=== PATIENT | female | born 1940 | race Caucasian/White ===

== ENCOUNTER 2023-11-30 11:36 | Inpatient (IN) | payer OTHER, SELFPAY ==
[2023-11-28 18:31] LABS: % Basophils 0.2 % (0-2); % Immature Granulocytes 0.6 % (0-0.5); % Lymphocytes 5.6 % (20.5-51.1); % Monocytes 8.9 % (1.7-9.3); % Neutrophils 84.7 % (42.2-75.2); Absolute Immature Granulocytes 0.1 10^3/uL (0-0.05); Absolute Monocytes 1.6 10^3/uL (0.1-0.6); Absolute Neutrophils 15.1 10^3/uL (1.4-6.5); Hematocrit 33.4 % (37.0-47.0); Hemoglobin 11.5 g/dL (12.0-16.0); Mean Corp Hgb Conc. 34.4 g/dL (33.0-37.0); Mean Corpuscular Hgb 28.3 pg (27.0-31.0); Mean Corpuscular Volume 82.1 fL (81.0-99.0); Mean Platelet Volume 10.5 fL (7.4-10.4); Nucleated Red Blood Cells % 0 %; Platelet Count 269 10^3/uL (130-400); Red Blood Cell Count 4.07 10^6/uL (4.20-5.40); Red Cell Dist. Width 13.4 % (11.5-14.5); White Blood Cell Count 17.8 10^3/uL (4.8-10.8)
[2023-11-28 18:41] LABS: ALT (SGPT) 28 U/L (0-35); AST (SGOT) 50 U/L (14-36); Albumin 4.4 g/dl (3.5-5.0); Alkaline Phosphatase 109 U/L (38-126); Blood Urea Nitrogen 19 mg/dl (7-17); Calcium 9.9 mg/dl (8.4-10.2); Carbon Dioxide 26 mmol/L (22-30); Chloride 96 mmol/L (98-107); Glucose 129 mg/dl (70-99); Lipase 32 U/L (23-300); Potassium 3.6 mmol/L (3.5-5.1); Sodium 133 mmol/L (135-145); Total Protein 6.7 g/dl (6.3-8.2); eGFR > 60.00
--- NOTE | 2023-11-28 19:13 | ED.GENMED ---
History of Present Illness
General
Chief Complaint: Abdominal Symptoms
Source: patient
Exam Limitations: none
Time Seen by Provider: 11/28/23 19:05
History of Present Illness
History of Present Illness:
See MDM
Past History
Past History
ED Past Medical History: HTN
ED Past Surgical History: Orthopedic
Social History
Tobacco: Non-smoker
Alcohol: None
Phy Exam
Physical Exam
Physical Exam:
See MDM
Course
Orders/Labs/Results
Orders:
Orders
11/28/23 18:07
Electrocardiogram (*1) Urgent
Reason for Study: Abdominal Pain
EKG- Treatment ONCE
11/28/23 18:13
Complete Blood Count/With Diff Urgent
Comprehensive Metabolic Panel Urgent
Lipase Urgent
11/28/23 19:12
0.9% Sodium Chloride 1000 ml [Nss] 1,000 ml IV BOLUS
Ketorolac [Toradol] 30 mg IV NOW STA
Ondansetron Injectable [Zofran] 4 mg IV NOW STA
US Abdomen Complete/Upper Urgent
Comment:
Reason For Exam: RUQ pain
11/28/23 20:28
Piperacillin/Tazo 3.375 Gram [Zosyn] 3.375 gram in 50 ml IV NOW
11/28/23 20:29
PTT Urgent
Prothrombin Time Urgent
Abnormal Lab Results
11/28/23
18:13
WBC 17.8 H 10^3/uL
(4.8-10.8)
RBC 4.07 L 10^6/uL
(4.20-5.40)
Hgb 11.5 L g/dL
(12.0-16.0)
Hct 33.4 L %
(37.0-47.0)
MPV 10.5 H fL
(7.4-10.4)
Abs Immat Gran (auto) 0.1 H 10^3/uL
(0-0.05)
Absolute Neuts (auto) 15.1 H 10^3/uL
(1.4-6.5)
Absolute Lymphs (auto) 1.0 L 10^3/uL
(1.2-3.4)
Absolute Monos (auto) 1.6 H 10^3/uL
(0.1-0.6)
Immature Gran % 0.6 H %
(0-0.5)
Neutrophils % 84.7 H %
(42.2-75.2)
Lymphocytes % 5.6 L %
(20.5-51.1)
Sodium 133 L mmol/L
(135-145)
Chloride 96 L mmol/L
(98-107)
BUN 19 H mg/dl
(7-17)
Glucose 129 H mg/dl
(70-99)
AST 50 H U/L
(14-36)
11/28/23 18:13
11/28/23 18:13
Vital Signs
Initial and Last Documented VS:
Initial Vital Signs
Temp Pulse Resp BP Pulse Ox
99.3 F 91 16 148/70 98
11/28/23 18:03 11/28/23 18:03 11/28/23 18:03 11/28/23 18:03 11/28/23 18:03
Last Documented Vital Signs
Temp Pulse Resp BP Pulse Ox
100.1 F 91 16 148/70 98
11/28/23 20:36 11/28/23 18:03 11/28/23 18:03 11/28/23 18:03 11/28/23 18:03
MDM/Problems Addressed
Differential Diagnosis Includes:
HPI and MDM Narrative:
83-year-old female presenting for over 24 hours abdominal pain. Patient has been nauseous and vomiting all day. Points to right upper quadrant pain. She has had no appetite and feels dehydrated. She denies black stools
On exam, she has point tenderness to the right upper quadrant. Will obtain ultrasound to rule out gallbladder pathology. She clinically appears dehydrated. Will give IV fluids. Will give Toradol and Zofran
Physical exam
General: Mildly uncomfortable
HEENT: protecting airway
Neck: appears supple
CV: No evidence of cyanosis
Resp: No accessory muscle use
Abd: Non-distended. Right upper quadrant tenderness. Mild rebound
Extremities: No deformities
Neuro: alert
Psych: Normal affect
Skin: Intact
Problems Addressed including Acute and Chronic Conditions affecting care:
1. Right upper quadrant pain
Acuity: acute
Prognosis: stable
Details: Will obtain ultrasound to rule out gallbladder pathology. Will give IV Toradol
2. Dehydration
Acuity: acute
Prognosis: stable
Details: Will start IV fluids
Updates
Ultrasound shows thickened gallbladder wall in addition to stones and sludge. Although it references a negative sonographic Partida sign, patient had received Tylenol before the ultrasound which helped with her symptoms drastically. On my exam, she
clinically had a positive Partida sign. This was relayed to general surgery. I started Zosyn and will admit and keep n.p.o. after midnight
Differential Diagnosis (but not limited to): Acute calculus cholecystitis, symptomatic cholelithiasis, colitis, appendicitis, peptic ulcer disease
Testing considered: CT abdomen/pelvis but will consider if ultrasound is negative
Drug therapy (if applicable): OTC meds, please see d/c instruction regarding Rx drugs
Amount and/or Complexity of Data Reviewed
Clinical info obtained from: Patient. Son at bedside states she has not eaten since last night
External data reviewed: N/A
Labs I independently reviewed (but not limited to): Leukocytosis
Radiology: Ultrasound report reviewed
Pulse Ox: not hypoxic
EKG independently reviewed: N/A
Saturation Diver: N/A
Critical Care: N/A
Risk of Complication:
Social Determinants of health: Good social support
Discussed with other providers: General surgery
Escalation of Care includes Admit/Obs: Given the concern for acute calculus cholecystitis, will admit for surgical evaluation
Occasional wrong word or 'sound a like' substitutions may have occurred due to the inherent limitations of voice recognition software. Read the chart carefully and recognize, using context, where substitutions have occurred.
*Critical Care Note
Total Time (30-74mins, 75-104mins- exclusive of procedures): Not Applicable
ED Attending Note
-
Portions of this chart may have been created with voice recognition software.� Occasional wrong word or��sound alike� substitutions may have occurred due to the inherent limitations of voice recognition software.
Discharge Plan
Departure
Patient Disposition: Admit
Date of Disposition: 11/28/23
Time of Disposition: 20:38
Admit to: Med/Surg
Presentation/result/management discussed w/ accepting MD/DO: General Surgery
Discharge Problem:
Acute calculous cholecystitis
Prescriptions:
No Action
oxycodone-acetaminophen 5 MG/325 MG tablet
1 tab PO Q4HPRN PRN (Reason: Pain) Qty: 15 0RF
Referrals:
Sonja Gregory MD [Family Provider] -
Interventions
Interventions:
*General Assessment Last Done: 11/28/23 20:31
ED- Fall Risk Assessment Last Done: 11/28/23 19:29
FL-Wlmtwc-Wgbcrineah Assessment Last Done: 11/28/23 19:29
Discharge Date and Time
Print Language: ARMENIAN
[2023-11-28] MEDS: NSS 1000 IV (19:20)
[2023-11-28] MEDS: ZOFRAN 4 MG IV (19:20)
[2023-11-28] MEDS: TORADOL 30 MG IV (19:21)
[2023-11-28] MEDS: ZOSYN 50 IV (20:32)
[2023-11-28 21:02] LABS: APTT 29.1 Sec (23.4-35.0); INR 1.24; PT 15.5 Sec (11.4-14.6)
--- NOTE | 2023-11-28 21:29 | HPS.HSE ---
Addendum entered and electronically signed by Mega Calle MD 11/29/23 08:20:
Patient seen and examined.
Patient is a 83 yo F with a PMH of HTN and spinal stenosis who presents with 24 to 48 hours of upper abdominal pain. Ms. Jacob states that her symptoms began on Tuesday evening (11/26). Tuesday morning she woke with severe upper abdominal pain
primarily within the RUQ. No specific radiation to the back, though clouded by her chronic back pain. Associated nausea and vomiting. No fevers or chills. She denies any jaundice, pale stools, or tea colored urine. She denies any prior attacks
of discomfort or pain. No strong family history of gallbladder or hepatobiliary malignancies. This morning she states that her pain is improved though not completely resolved.
Gen: NAD
Abd: soft, tender to palpation in RUQ, positive Partida's sign, ND, non-peritoneal
Patient is an 83 yo F p/w acute cholecystitis
The natural history and pathophysiology of biliary and stone disease was discussed. Anatomy was briefly reviewed. Workup including labs and ultrasound were reviewed. Options for management were reviewed. Given her persistent levels of pain
recommend cholecystectomy.
Plan for a laparoscopic cholecystectomy with possible cholangiogram. The procedure itself, as well as the risks, benefits, and alternatives was discussed. Specifically, we discussed the risks of bleeding, infection, injury to surrounding
structures (bowel, bile ducts), CBD injury, need for open procedure. Typical postprocedural recovery was discussed. All questions answered. Consent signed.
-- Laparoscopic cholecystectomy with possible IOC
-- NPO, IVF
-- Antibiotics: Zosyn
-- Pain control: Tylenol and IV Dilaudid as needed
Original Note:
Family Physician
-
Family Physician: Sonja Gregory MD
Chief Complaint
-
Abdominal pain
History of Present Illness
a 83 year old female with PMH of HTN and spinal stenosis present in ER with a complain of abdominal pain. Symptoms started Tuesday night after she ate her dinner with a pain located at upper abdominal pain mostly to the RUQ of the abdomen,
associated with nausea and vomiting x3. Patient was not able to ate or drink since then and she feels dehydrated. Denied constipation, diarrhea, urinary symptoms, fever, chills, SOB, chest pain or any other symptoms.
Medical History
Past Medical History
Past Medical History: Reports HTN and Other (Spinal stenosis )
Past Surgical History: Reports Orthopedic and Other (cataract )
Social History
Tobacco: Non-smoker
Alcohol: None
Drug: None
Personal: Other
Living: Alone
Employment: Other
Family History
Family History: Not pertinent
Allergies / Home Medications
Allergies reflects when Allergies were last updated in [facility].
Home Medications with original date entered in [facility]
Allergy/Medication List:
Patient Allergies
Allergy/AdvReac Type Severity Reaction Status Date / Time
No Known Allergies Allergy Verified 11/28/23 18:07
Home Medications Table - record
�Medication �Instructions �Recorded �Confirmed
Lactobac no.2-Bifidobac no.1-S. 1 cap PO Q48H 11/28/23 11/28/23
thermo 112.5 billion cell capsule
(Visbiome)
acetaminophen 500 mg tablet 1,000 mg PO Q6HPRN PRN mild pain 11/28/23 11/28/23
(Tylenol Extra Strength)
carvedilol 25 mg tablet 25 mg PO BID 11/28/23 11/28/23
cholecalciferol (vitamin D3) 25 25 mcg PO Q48H 11/28/23 11/28/23
mcg (1,000 unit) tablet (Vitamin
D3)
hydralazine 25 mg tablet 25 mg PO TID 11/28/23 11/28/23
losartan 100 1 tab PO DAILY 11/28/23 11/28/23
mg-hydrochlorothiazide 25 mg tablet
meloxicam 7.5 mg tablet 7.5 mg PO DAILYPRN PRN moderate 11/28/23 11/28/23
pain
zinc sulfate 50 mg zinc (220 mg) 50 mg PO Q48H 11/28/23 11/28/23
tablet
Review of Systems
-
A 12 point ROS was completed and negative except as noted: Yes
Constitutional: Reports No Symptoms
EENT: Reports No Symptoms
Respiratory: Reports No Symptoms
Cardiac: Reports No Symptoms
Abdomen/GI: Reports Abdominal Pain (RUQ and epigastric area ), Nausea and Vomiting
: Reports No Symptoms
Musculoskeletal: Reports No Symptoms
Skin: Reports No Symptoms
Neurological: Reports No Symptoms
Endocrine: Reports No Symptoms
Hematologic/Lymphatic: Reports No Symptoms
Psych: Reports No Symptoms
Physical Exam
Vital Signs
Vital Signs
Temp Pulse Resp BP Pulse Ox
100.1 F 91 16 148/70 98
11/28/23 20:36 11/28/23 18:03 11/28/23 18:03 11/28/23 18:03 11/28/23 18:03
Physical Exam
General: No Apparent Distress
Respiratory: Clear
Cardiac: Regular Rhythm
GI: Soft, Non Distended, Normal Bowel Sounds and Tender (RUQ )
Musculoskeletal: No Edema
Neuro: Awake and AO x 3
Psych: Calm
Laboratory Results
-
11/28/23 18:13
11/28/23 18:13
Laboratory Results
PT 15.5 Sec (11.4-14.6) H 11/28/23 20:31
INR 1.24 11/28/23 20:31
APTT 29.1 Sec (23.4-35.0) 11/28/23 20:31
Total Bilirubin 1.0 mg/dl (0.2-1.3) 11/28/23 18:13
AST 50 U/L (14-36) H 11/28/23 18:13
ALT 28 U/L (0-35) 11/28/23 18:13
Alkaline Phosphatase 109 U/L (38-126) 11/28/23 18:13
Lipase 32 U/L (23-300) 11/28/23 18:13
Data Reviewed
-
Ultrasound: Discussed with Patient
Lab Data: Discussed with Patient
Impression/Plan
-
Abd/US shows Gallbladder with stones and sludge as well as mild wall thickening. Negative sonographic Partida's sign. No findings to suggest biliary tract dilatation.
WBC 17.8
IMPRESSION:
Acute calculous cholecystitis
PLAN:
-Admit/ observation/ med-surg level Dr. Calle (general surgery services).
-NPO
-IVF
-analgesics as needed, patient prefer non opioid med, received Toradol on ER and would like to continue.
-Antiemetics as needed
-Zosyn abx
-Repeat cbc, cmp in am
HTN
On Hydralazine, losartan-hydrochlorothiazide, Carvedilol.
DVT prophylaxis: SCDs
Code Status: Full code
[2023-11-29] MEDS: ZOSYN 50 IV ×4 (02:12→20:19)
[2023-11-29] MEDS: NSS 1000 IV ×3 (02:13→16:09)
[2023-11-29] MEDS: TORADOL 10 MG IV ×3 (02:22→21:41)
[2023-11-29] MEDS: ZOFRAN 4 MG IV (08:08)
--- NOTE | 2023-11-29 08:21 | W.SUR.PREOP ---
Pre-Operative Surgical Note
-
I have examined this patient prior to the performance of the scheduled procedure.
The patient's condition is unchanged from the time of the current History and
Physical and the patient is able to undergo the scheduled procedure.
[2023-11-29] MEDS: TYLENOL 650 MG PO (08:27)
--- NOTE | 2023-11-29 09:30 | PTCARENOTE ---
Patient to OR for lap mj in bed with SCDs. Chart handed to transport team.
--- NOTE | 2023-11-29 12:50 | W.IMMPOSTOP ---
Surgical Immed Post Op Note
-
Primary Surgeon: Alva
Assisting Surgeon: None
Pre-op Diagnosis: Acute cholecystitis
Post-op Diagnosis: Acute cholecystitis
Procedure Performed: Laparoscopic cholecystectomy with intraoperative cholangiogram
Anesthesia Type: General
Specimen / Cultures:
1. Gallbladder
Estimated Blood Loss: 7 cc
Complications: None
Operative Findings:
1. Gangrenous and patchy necrosis of the GB wall, small stones impacted at GB neck
2. Artery obliterated
3. IOC with stones milked from cystic duct infundibular junction, anatomy confirmed, no evidence of stones within CBD
4. Duct taken with COURTNEY 30 mm soriano load stapler
5. 19 Fr Ernesto drain into operative field
Plan
-- ADAT
-- Repeat CMP tomorrow
-- Monitor in hospital for 48 hours - continue IV abx (total 4 days on DC), OK to DC MEL on DC if benign
--- NOTE | 2023-11-29 14:30 | PTCARENOTE ---
Received patient s/p lap mj from PACU, VSS, SCDs in place, patient connected to IV zosyn and NSS at 70 ml/hr. Patient states mild abdominal pain rated 2-3/10 around RLQ MEL drain, PRN toradol given - see JUN. MEL drain with serosanguineous output,
site reinforced with drainage sponge and tape. Low fat diet order entered for patient. Call kohli in place, patient states no concerns at this time.
--- NOTE | 2023-11-29 15:21 | CM ---
Reviewed the chart notes and spoke with the patient at the bedside. The patient resides alone in a first floor condo with no steps to enter. The patient reports no DME or SNF in the past, but had VN in the past. The patient confirmed her pharmacy
of choice is [facility]. CM continues to be available to patient/family and is monitoring medical plan for needs at discharge.
Plan: Discharge to home when medically stable.
[2023-11-29] MEDS: APRESOLINE PO ×2 (15:37→21:39)
--- NOTE | 2023-11-29 15:42 | PTCARENOTE ---
Addendum entered by Catalina Moore RN 11/29/23 19:57:
1600 scheduled hydralazine held per MD order.
Original Note:
Patient's post op BP 89/54 HR 81; patient sitting up in bed eating lunch, states no concerns at this time other than mild abdominal pain around RLQ MEL drain rated 2-3/10, relieved by PRN IV toradol. MD made aware of BP, verbal order taken to
increase patient's IVF to NSS @ 100 ml/hr.
[2023-11-29] MEDS: LOVENOX 40 MG SC (17:22)
[2023-11-29] MEDS: COREG 25 MG PO (20:20)
[2023-11-29 20:30] LABS: % Basophils 0.2 % (0-2); % Immature Granulocytes 0.9 % (0-0.5); % Lymphocytes 2.9 % (20.5-51.1); % Monocytes 5.2 % (1.7-9.3); % Neutrophils 90.8 % (42.2-75.2); Absolute Immature Granulocytes 0.2 10^3/uL (0-0.05); Absolute Lymphocytes 0.6 10^3/uL (1.2-3.4); Absolute Monocytes 1.1 10^3/uL (0.1-0.6); Absolute Neutrophils 19.7 10^3/uL (1.4-6.5); Hematocrit 28.2 % (37.0-47.0); Hemoglobin 10.1 g/dL (12.0-16.0); Mean Corp Hgb Conc. 35.8 g/dL (33.0-37.0); Mean Corpuscular Hgb 28.9 pg (27.0-31.0); Mean Corpuscular Volume 80.8 fL (81.0-99.0); Mean Platelet Volume 11.1 fL (7.4-10.4); Nucleated Red Blood Cells % 0 %; Platelet Count 259 10^3/uL (130-400); Red Blood Cell Count 3.49 10^6/uL (4.20-5.40); Red Cell Dist. Width 13.9 % (11.5-14.5); White Blood Cell Count 21.7 10^3/uL (4.8-10.8)
[2023-11-29 21:39] LABS: AST (SGOT) 522 U/L (14-36); Alkaline Phosphatase 267 U/L (38-126); Blood Urea Nitrogen 27 mg/dl (7-17); Calcium 8.3 mg/dl (8.4-10.2); Carbon Dioxide 24 mmol/L (22-30); Chloride 98 mmol/L (98-107); Estimated Creatinine Clearance 29 ml/min; Glucose 142 mg/dl (70-99); Potassium 3.2 mmol/L (3.5-5.1); Sodium 130 mmol/L (135-145); Total Bilirubin 1.6 mg/dl (0.2-1.3); Total Protein 5.1 g/dl (6.3-8.2)
[2023-11-29 21:44] LABS: ALT (SGPT) 427 U/L (0-35)
--- NOTE | 2023-11-29 21:51 | PTCARENOTE ---
Addendum entered by Monica Cho RN 11/29/23 22:12:
General Surgery- No new orders at this time. aware of pt's labs and blood pressure. (Per [facility] [employer], 2199 scheduled Hydralazine held).
[facility] [employer]- Potassium Ride ordered for K 3.2
Original Note:
s/p Lap cholecystectomy with intraoperative cholangiogram
11/28 2045 Critical AST 522
11/27 AST50
General surgery and [facility] [employer] notified.
[2023-11-29] MEDS: KCL 270 MEQ IV (22:17)
[2023-11-30] MEDS: NSS 1000 IV ×2 (02:19→13:46)
[2023-11-30] MEDS: ZOSYN 50 IV ×4 (02:19→20:04)
--- NOTE | 2023-11-30 07:12 | W.PN.GS2 ---
Today's Communication / Plan
-
-- LFD
-- Pain control: Tylenol, Toradol, Tramadol, IV Dilaudid PRN
-- IVF, OK to [facility] this afternoon
-- Abx: Zosyn, transition to Augmentin on DC for total 4 days
-- Repeat CBC and CMP
Assessment / Plan
-
Patient is a 83 yo F POD#1 s/p laparoscopic cholecystectomy with IOC
Recovering well. Labs from yesterday demonstrate elevated bili and LFTs will trend. Monitor in hospital for drain management and antibiotics.
-- LFD
-- Pain control: Tylenol, Toradol, Tramadol, IV Dilaudid PRN
-- IVF, OK to [facility] this afternoon
-- Abx: Zosyn, transition to Augmentin on DC for total 4 days
-- Home BP medications
-- DVT: Lovenox
-- OOB/ambulate
-- Repeat CBC and CMP
Subjective Data
-
Date of Service: November 30, 2023
Soreness with coughing, otherwise pain improved and well controlled. Tolerated LFD, no nausea or emesis. No fevers. UOP clear. Minimal ambulation.
Objective Data
-
Intake and Output
11/29/23 11/30/23 12/01/23
06:59 06:59 06:59
Intake Total 190 / 190 3268 / 3268
Output Total 50 / 50
Balance 190 / 190 3218 / 3218
Intake:
Oral fluids 1093 / 1093
IV fluids (Total) 140 / 140 1705 / 1705
norm 125 / 125
IV piggybacks 50 / 50 470 / 470
Output:
Drain Output (Total) 50 / 50
Right Abdomen Kobe-Martinez 50 / 50
Other:
Number of approximated MODERATE 1 1
amounts of urine
Number of approximated LARGE 1 1
amounts of urine
Vital Signs
Temp Pulse Resp BP Pulse Ox
98.0 F 69 16 124/61 93
11/30/23 03:13 11/30/23 03:13 11/30/23 03:13 11/30/23 03:13 11/30/23 03:13
Calcium 8.3 mg/dl (8.4-10.2) L D 11/29/23 21:00
Total Bilirubin 1.6 mg/dl (0.2-1.3) H 11/29/23 21:00
AST 522 U/L (14-36) H* 11/29/23 21:00
ALT 427 U/L (0-35) H 11/29/23 21:00
Alkaline Phosphatase 267 U/L (38-126) H 11/29/23 21:00
Total Protein 5.1 g/dl (6.3-8.2) L D 11/29/23 21:00
Albumin 3.0 g/dl (3.5-5.0) L 11/29/23 21:00
Physical Exam
-
Gen: NAD
Abd: soft, minimal tenderness, ND, non-peritoneal, incisions c/d/i - no erythema, ecchymosis or drainage, MEL serous
[2023-11-30 08:14] LABS: Hematocrit 27.2 % (37.0-47.0); Hemoglobin 9.5 g/dL (12.0-16.0); Mean Corp Hgb Conc. 34.9 g/dL (33.0-37.0); Mean Corpuscular Hgb 28.8 pg (27.0-31.0); Mean Corpuscular Volume 82.4 fL (81.0-99.0); Platelet Count 218 10^3/uL (130-400); Red Cell Dist. Width 13.8 % (11.5-14.5); White Blood Cell Count 17.2 10^3/uL (4.8-10.8)
[2023-11-30 09:07] LABS: ALT (SGPT) 324 U/L (0-35); AST (SGOT) 247 U/L (14-36); Albumin 2.9 g/dl (3.5-5.0); Alkaline Phosphatase 274 U/L (38-126); Blood Urea Nitrogen 27 mg/dl (7-17); Calcium 8.6 mg/dl (8.4-10.2); Carbon Dioxide 21 mmol/L (22-30); Chloride 104 mmol/L (98-107); Estimated Creatinine Clearance 29 ml/min; Glucose 101 mg/dl (70-99); Potassium 3.8 mmol/L (3.5-5.1); Sodium 134 mmol/L (135-145); Total Bilirubin 0.9 mg/dl (0.2-1.3)
[2023-11-30] MEDS: HYZAAR 100-25 TABLET 1 TAB PO (09:28)
[2023-11-30] MEDS: APRESOLINE 25 MG PO ×2 (09:34→18:03)
[2023-11-30] MEDS: COREG 25 MG PO ×2 (09:34→20:04)
--- NOTE | 2023-11-30 15:28 | CM ---
Reviewed the chart notes and spoke with the patient at the bedside. Patient requesting VN at discharge. Referral sent to VN. Patient continues with MEL drain. Per RN, staff have walked patient with managing IV pole for the patient. CM
continues to be available to patient/family and is monitoring medical plan for needs at discharge.
Plan: Discharge to home with VN services.
[2023-11-30] MEDS: LOVENOX 40 MG SC (18:04)
[2023-11-30] MEDS: TYLENOL 650 MG PO (20:07)
[2023-11-30] MEDS: APRESOLINE PO (22:29)
[2023-12-01] MEDS: NSS 1000 IV (02:11)
[2023-12-01] MEDS: ZOSYN 50 IV ×3 (02:11→14:03)
--- NOTE | 2023-12-01 07:10 | W.PN.GS2 ---
Today's Communication / Plan
-
d/c home today
Assessment / Plan
-
Patient is a 83 yo F POD#2 s/p laparoscopic cholecystectomy with IOC
Recovering well. Labs from yesterday demonstrate elevated bili and LFTs. trending down now
- Tolerating LFD
- Pain control: Tylenol, Toradol, Tramadol, IV Dilaudid PRN
- Abx: Zosyn, transition to Augmentin on DC for total 4 days
- Encourage ambulation/OOB
- Home BP medications
- d/c home today after lab results
- jeramie drain with serous(10ml), will remove before sending home
- DVT: Lovenox
Time Spent
Total Time Spent with Patient (in minutes): 15
Subjective Data
-
Date of Service: December 01, 2023
Interval events: Pain improved significantly. Tolerated LFD, no nausea or emesis. No fevers. UOP clear. Minimal ambulation. Able to pass flatus, no BM yet.
Objective Data
-
Intake and Output
11/30/23 12/01/23 12/02/23
06:59 06:59 06:59
Intake Total 3268 / 3268 2240 / 2240
Output Total
Balance 3218 / 3218 2230 / 2230
Intake:
Oral fluids 1093 / 1093 1140 / 1140
IV fluids (Total) 1705 / 1705 1000 / 1000
norm 125 / 125
IV piggybacks 470 / 470 100 / 100
Output:
Drain Output (Total) 50 / 50 10 / 10
Right Abdomen Kobe-Martinez 50 / 10 /
Other:
Number of approximated MODERATE 1 6
amounts of urine
Number of approximated LARGE 1
amounts of urine
Vital Signs
Temp Pulse Resp BP Pulse Ox
97.8 F 67 16 104/52 95
11/30/23 23:27 11/30/23 23:27 11/30/23 23:27 11/30/23 23:27 11/30/23 23:27
Calcium 8.6 mg/dl (8.4-10.2) 11/30/23 07:25
Total Bilirubin 0.9 mg/dl (0.2-1.3) 11/30/23 07:25
AST 247 U/L (14-36) H 11/30/23 07:25
ALT 324 U/L (0-35) H 11/30/23 07:25
Alkaline Phosphatase 274 U/L (38-126) H 11/30/23 07:25
Total Protein 5.0 g/dl (6.3-8.2) L 11/30/23 07:25
Albumin 2.9 g/dl (3.5-5.0) L 11/30/23 07:25
Physical Exam
-
Gen: No apparant distress
Abd: soft, minimal tenderness, no distension, non-peritoneal, incisions c/d/i - no erythema, ecchymosis or drainage, JERAMIE serous(10ml)
[2023-12-01] MEDS: HYZAAR 100-25 TABLET 1 TAB PO (07:39)
[2023-12-01] MEDS: COREG 25 MG PO (07:39)
[2023-12-01] MEDS: APRESOLINE 25 MG PO (07:40)
[2023-12-01 10:08] LABS: Hematocrit 26.1 % (37.0-47.0); Hemoglobin 8.9 g/dL (12.0-16.0); Mean Corp Hgb Conc. 34.1 g/dL (33.0-37.0); Mean Corpuscular Hgb 28.9 pg (27.0-31.0); Mean Corpuscular Volume 84.7 fL (81.0-99.0); Mean Platelet Volume 10.7 fL (7.4-10.4); Platelet Count 234 10^3/uL (130-400); Red Blood Cell Count 3.08 10^6/uL (4.20-5.40); Red Cell Dist. Width 13.9 % (11.5-14.5); White Blood Cell Count 10.1 10^3/uL (4.8-10.8)
[2023-12-01 10:58] LABS: ALT (SGPT) 196 U/L (0-35); AST (SGOT) 74 U/L (14-36); Albumin 2.7 g/dl (3.5-5.0); Alkaline Phosphatase 228 U/L (38-126); Blood Urea Nitrogen 23 mg/dl (7-17); Calcium 8.5 mg/dl (8.4-10.2); Carbon Dioxide 27 mmol/L (22-30); Chloride 105 mmol/L (98-107); Estimated Creatinine Clearance 32 ml/min; Glucose 115 mg/dl (70-99); Potassium 3.5 mmol/L (3.5-5.1); Sodium 134 mmol/L (135-145); Total Bilirubin 0.5 mg/dl (0.2-1.3); Total Protein 4.7 g/dl (6.3-8.2); eGFR > 60.00
--- NOTE | 2023-12-01 11:06 | CM ---
Addendum entered by Janet Franco RN 12/01/23 12:57:
IMM signed and placed on chart. The patient's son will provide transportation.
Original Note:
Reviewed the chart notes and spoke with the patient at the bedside. Patient tolerating diet. CM continues to be available to patient/family and is monitoring medical plan for needs at discharge.
Plan: Discharge to home with VN services. Referral previously sent and VN will accepted the patient onto their service at discharge.
--- NOTE | 2023-12-01 11:42 | W.PN.UPDATE ---
Update Note
Progress Note Update
MEL Drain was removed, no bleeding, no drainage. Gauze and tagaderm was put on the incision. The patient verified understanding to change the band aid everyday until the wound heal.
--- NOTE | 2023-12-01 13:55 | W.DS.TRANS ---
DC Summary - Production Mechanic
-
Discharge Instructions:
Discharge Diagnosis/Procedures Laparoscopic cholecystectomy with cholangiogram
Diet Low Fat,Regular
Additional Diets If issues with bloating or diarrhea follow a low
-fat diet
Activity No strenuous activity
Additional Activity No heavy lifting (>20 lbs) or strenuous
activities for 2 weeks postoperatively
Driving Restrictions No driving if too sore or taking narcotics
Bathing Restrictions OK to Shower
Wound Care Keep incisions clean and dry. Glue will flake
off in 2 to 3 weeks. Stitches will dissolve.
Cover old drain site with dry gauze daily and as
needed for any drainage.
Instructions:
Stand-Alone Forms:
Changes to Home Medications: No
Discharge Medications:
DC Medications w/original date entered in [facility]
Lactobac no.2-Bifidobac no.1-S. thermo 112.5 billion cell capsule (Visbiome) 1 cap PO Q48H Gastrointestinal Issue 11/28/23
acetaminophen 500 mg tablet (Tylenol Extra Strength) 1,000 mg PO Q6HPRN PRN mild pain 11/28/23
carvedilol 25 mg tablet 25 mg PO BID Blood Pressure 11/28/23
cholecalciferol (vitamin D3) 25 mcg (1,000 unit) tablet (Vitamin D3) 25 mcg PO Q48H Supplement 11/28/23
hydralazine 25 mg tablet 25 mg PO TID Blood Pressure 11/28/23
losartan 100 mg-hydrochlorothiazide 25 mg tablet 1 tab PO DAILY Blood Pressure 11/28/23
meloxicam 7.5 mg tablet 7.5 mg PO DAILYPRN PRN moderate pain 11/28/23
zinc sulfate 50 mg zinc (220 mg) tablet 50 mg PO Q48H Supplement 11/28/23
amoxicillin 875 mg-potassium clavulanate 125 mg tablet 1 tab PO Q12 antibiotic 4 days #8 tabs 12/01/23
tramadol 50 mg tablet 50 mg PO Q6HPRN PRN severe pain/breakthrough pain #10 tabs 12/01/23
Home Medication Changes
Pending Results: No
== END 2023-12-01 16:01 | disposition home health service (06) | DRG 419 ==
LOC: 2 NORTH 11:36
PROVIDERS: Emergency Medicine; ADMITTING PHYSICIAN Surgery; EMERGENCY PHYSICIAN Student in an Organized Health Care Education/Training Program; FAMILY PHYSICIAN Family Medicine
PROC: BF141ZZ Fluoroscopy of Gallbladder, Bile Ducts and Pancreatic Ducts using Low Osmolar Contrast (ICD-10-PCS; 2023-11-29)
PROC: 0FT44ZZ Resection of Gallbladder, Percutaneous Endoscopic Approach (ICD-10-PCS; 2023-11-29)
DX: K80.00 Calculus of gallbladder with acute cholecystitis without obstruction (principal); I10 Essential (primary) hypertension; K82.A1 Gangrene of gallbladder in cholecystitis
CPT/HCPCS: 88304; 74300; 76000; 76700; 80053; 83690; 85025; 85027; 85610; 85730; 93005; 96365; 96375; 99285